=== PATIENT | male | born 1965 | race American Indian/Alaskan Native ===

== ENCOUNTER 2018-04-28 10:48 | Emergency (ER) | payer BC ==
[2018-04-28 10:56] VITALS: BP 145/81
--- NOTE | 2018-04-28 11:52 | Emergency Department Report ---
ED Allergic Reaction HPI - General Chief complaint: Back Pain/Injury Stated complaint: RT SIDE BACK/HIP PAIN Time Seen by Provider: 04/28/18 11:33 Source: patient Mode of arrival: Ambulatory Limitations: No Limitations - History of Present Illness Initial Comments: Patient is a 53-year-old Ethiop[place] male who is complaining of some low back pain and right hip pain. Patient states he does very heavy lifting at work and was having a hard time walking secondary to pain this morning. Patient says pain is 8 out of 10 in severity. Patient denies any direct trauma. Patient denies any bowel or bladder dysfunction fevers or chills his time. - Related Data Previous Rx's Medication Instructions Recorded Last Taken Type Ibuprofen [Motrin] 800 mg PO Q8HR PRN #20 tablet 04/28/18 Unknown Rx methOCARBAMOL [Robaxin TAB] 500 mg PO Q6H PRN #15 tablet 04/28/18 Unknown Rx traMADol [Ultram] 50 mg PO Q6HR PRN #12 tablet 04/28/18 Unknown Rx Allergies Allergy/AdvReac Type Severity Reaction Status Date / Time No Known Allergies Allergy Unverified 04/28/18 10:49 ED Review of Systems ROS: Stated complaint: RT SIDE BACK/HIP PAIN Other details as noted in HPI Comment: All other systems reviewed and negative ED Past Medical Hx - Past Medical History Previous Medical History?: Yes Hx Hypertension: Yes - Surgical History Past Surgical History?: No - Social History Smoking Status: Never Smoker Substance Use Type: None - Medications Home Medications: Home Medications Medication Instructions Recorded Confirmed Last Taken Type Ibuprofen [Motrin] 800 mg PO Q8HR PRN #20 tablet 04/28/18 Unknown Rx methOCARBAMOL [Robaxin TAB] 500 mg PO Q6H PRN #15 tablet 04/28/18 Unknown Rx traMADol [Ultram] 50 mg PO Q6HR PRN #12 tablet 04/28/18 Unknown Rx ED Physical Exam - General Limitations: No Limitations General appearance: alert, in no apparent distress - Head Head exam: Present: atraumatic, normocephalic - Eye Eye exam: Present: normal appearance - ENT ENT exam: Present: mucous membranes moist - Neck Neck exam: Present: normal inspection - Respiratory Respiratory exam: Present: normal lung sounds bilaterally. Absent: respiratory distress, wheezes, rales, rhonchi - Cardiovascular Cardiovascular Exam: Present: regular rate, normal rhythm. Absent: systolic murmur, diastolic murmur, rubs, gallop - GI/Abdominal GI/Abdominal exam: Present: soft, normal bowel sounds. Absent: distended, tenderness, guarding - Rectal Rectal exam: Present: deferred - Extremities Exam Extremities exam: Present: normal inspection - Back Exam Back exam: Present: normal inspection, paraspinal tenderness (right lumbar and right hip tenderness. Patient is ambulatory and able to bear weight.) - Neurological Exam Neurological exam: Present: alert, oriented X3 - Psychiatric Psychiatric exam: Present: normal affect, normal mood - Skin Skin exam: Present: warm, dry, intact, normal color. Absent: rash ED Course Vital Signs 04/28/18 10:54 Temperature 97.8 F Pulse Rate 54 L Respiratory 16 Rate Blood Pressure 145/81 O2 Sat by Pulse 97 Oximetry ED Medical Decision Making - Medical Decision Making Patient's likely with some musculoskeletal low back pain and some lumbar radiculopathy. Patient needs to be evaluated by orthopedic surgery and may need MRI in the future. Patient prefers to not use a heating pad for the next several days which would likely make his inflammation worse. Patient discharged with Ms. for symptomatic relief. Critical care attestation.: If time is entered above; I have spent that time in minutes in the direct care of this critically ill patient, excluding procedure time. ED Disposition Clinical Impression: Lumbar radiculopathy, acute Disposition: DC-01 TO HOME OR SELFCARE Is pt being admited?: No Does the pt Need Aspirin: No Condition: Stable Instructions: Low Back Strain (ED), Lumbar Radiculopathy (ED) Referrals: JUNO BACK MD [Staff Physician] - 3-5 Days Time of Disposition: 11:53
== END 2018-04-28 12:02 | disposition home or self-care (01) ==
LOC: ED 10:48
DX: M54.16 Radiculopathy, lumbar region (principal); I10 Essential (primary) hypertension
CPT/HCPCS: 99282